=== PATIENT | male | born 1955 | race Caucasian/White ===

== ENCOUNTER 2017-04-03 13:49 | Observation (INO) | payer MEDICAID ==
[2017-04-03] MEDS ORDERED: ONDANSETRON ODT 4 MG TAB.RAPDIS ONE (14:16)
[2017-04-03 14:19] LABS: BLOOD UREA NITROGEN 16 mg/dL (9-20); CALCIUM 9.9 mg/dL (8.4-10.2); CHLORIDE 104 mmol/L (98-107); EST GLOMERULAR FILTRATION RATE > 60 mL/min; GLUCOSE 137 mg/dL (70-100); POTASSIUM 3.4 mmol/L (3.5-5.1); SODIUM 140 mmol/L (137-145)
[2017-04-03 14:28] LABS: BASOPHILS 0.4 % (0.0-2.0); EOSINOPHILS 2.7 % (0.0-6.0); EOSINOPHILS# 0.2 X 10^3uL (0.0-0.4); HEMATOCRIT 50.9 % (42.0-54.0); HEMOGLOBIN 17.8 g/dL (14.0-18.0); LYMPHOCYTES 26.3 % (20.0-40.0); LYMPHOCYTES# 2.1 X 10^3uL (0.8-3.8); MEAN CORPUS. HGB CONCENTRATION 34.9 g/dL (32.0-36.0); MEAN CORPUSCULAR HEMOGLOBIN 31.4 pg (29.0-35.0); MONOCYTES 6.5 % (2.0-10.0); MONOCYTES# 0.5 X 10^3uL (0.2-1.0); NEUTROPHILS 64.1 % (54.0-75.0); NEUTROPHILS# 5.1 X 10^3uL (2.6-6.7); PLATELET COUNT 317 X 10^3uL (130-440); RED BLOOD COUNT 5.65 X 10^6uL (4.20-6.10); RED CELL DISTRIBUTION WIDTH 12.4 % (11.5-14.5); WHITE BLOOD COUNT 7.9 X 10^3uL (3.9-10.7)
--- NOTE | 2017-04-03 14:34 | RADIOLOGY REPORT ---
HISTORY: COMPARISON: None. FINDINGS: 1 view of the chest obtained. Heart size and mediastinal contours are normal for the technique. The l ungs are clear but are mildly hypoinflated. IMPRESSION: Negative portable chest. Final Electronic Signature: This report was electronically signed by Pieter Howard MD on 04/03/2017 2: 32 PM. [email or web address] /
--- NOTE | 2017-04-03 14:39 | CT REPORT ---
HISTORY: Right-sided weakness. COMPARISON: None. TECHNIQUE: Dose reduction technique was utilized. Axial non-contrast images obtained from skull vertex through foramen magnum. Coronal reformats are obtained and reviewed. FINDINGS: BRAIN: No atrophy. No acute intracranial hemorrhage. No mass effect or hydrocephalus. No CT evidence of infarction. BONES AND EXTRACRANIAL SOFT TISSUES: The orbits are unremarkable. The paranasal sinuses and mastoid a ir cells are clear. The calvarium is intact. IMPRESSION: No acute findings. Final Electronic Signature: This report was electronically signed by Wilberto Arguello MD on 04/03/2017 2:37 PM. [email or web address] /
[2017-04-03] MEDS ORDERED: ONDANSETRON HCL 4 MG/2 ML VIAL ONE ×2 (14:56→15:23)
[2017-04-03 15:32] LABS: C-REACTIVE PROTEIN 10.3 mg/L (<10.0)
[2017-04-03 16:05] LABS: TROPONIN I < 0.012 ng/mL (0.00-0.034)
[2017-04-03] MEDS ORDERED: LORazepam 2 MG/ML INJ ONE (16:26)
[2017-04-03] MEDS ORDERED: POLYETHYLENE GLYCOL 3350 17 GM POWD.PACK PO PRN (16:47)
[2017-04-03] MEDS ORDERED: HOME MEDICATION LIST NEEDED 1 EA EACH MISC ONE (16:47)
[2017-04-03] MEDS ORDERED: ZOLPIDEM TARTRATE 5 MG TABLET PO PRN (16:47)
[2017-04-03] MEDS ORDERED: MAG-AL PLUS XS SUSP 30 ML UDC PO PRN (16:47)
[2017-04-03] MEDS ORDERED: NORMAL SALINE 1,000 ML IV SCH (17:00)
--- NOTE | 2017-04-03 17:54 | ER NURSING DOCUMENTATION ---
Nurse's Notes [facility] Name:Robert Fatima Age:62 yrs Sex:Male :1955 Arrival Date:04/03/2017 Time:13:49 BedTrauma-C Private MD: Diagnosis:Chest Pain;Dizziness - Vertigo Presentation: 04/03 13:54 Acuity: GILL 2 rh 14:02 Presenting complaint: EMS states: Pt woke up this am and was getting out of bed, pt rh became sweaty, dizzy and had chest tightness. Pt c/o weakness in the right arm and vision changes in the right eye. 14:11 Transition of care: Home. rh 14:11 Method Of Arrival: EMS: 410 rh Triage Assessment: 14:13 General: Appears in no apparent distress, Behavior is cooperative. Pain: Complains of rh pain in chest. EENT: Oral mucosa is dry. Neuro: Level of Consciousness is awake, alert, obeys commands, Oriented to person, place, time, event, Sharepoint Application Developer are weak on right Speech is normal, Facial symmetry appears normal, Pupils are PERRLA. Cardiovascular: Capillary refill < 3 seconds Reports Diaphoresis lightheadedness, Rhythm is sinus rhythm Chest pain quality is heaviness. Respiratory: Airway is patent Respiratory effort is even, unlabored, Denies shortness of breath. GI: Reports nausea. : No deficits noted. Derm: Skin is intact, is healthy with good turgor, Skin is pink, warm & dry. Musculoskeletal: Circulation, motion, and sensation intact Range of motion intact in all extremities. Historical: - Allergies: Codeine; TETRACYCLINES; - Home Meds: 1. NOVALOG INSLUN 2. Lisinopril Oral - PMHx: Diabetes - IDDM; Hypertension; HIGH CHOLESTEROL; - PSHx: Knee surgery; Cholecysectomy; - Tetanus: < 10 years. - Ebola Screening: : Patient negative for fever greater than or equal to 101.5 degrees Fahrenheit, and additional compatible Ebola Virus Disease symptoms. - Immunization history: Flu Vaccine < 1 year. - Social history: Smoking status: Patient states was never smoker of tobacco. Screenin:16 Infectious Disease Risk None. Abuse screen: Denies threats or abuse. Denies injuries rh from another. Nutritional screening: No deficits noted. Assessment: 14:16 See Triage Assessment done by same RN. Vital Signs: 13:55 BP 148 / 67; Pulse 71; Resp 20; Temp 98.8(TE); Pulse Ox 88% on R/A; Weight 124.74 kg; rh Height 5 ft. 7 in. (170.18 cm); Pain 0/10; 14:47 BP 151 / 69; Pulse 79; Resp 18; Pulse Ox 97% on 2 lpm NC; rh 15:30 BP 127 / 70; Pulse 73; Resp 14; Pulse Ox 98% on 2 lpm NC; Pain 0/10; rh 16:58 BP 130 / 66; Pulse 76; Resp 15; Pulse Ox 97% on 2 lpm NC; rh 17:30 BP 150 / 80; Pulse 79; Resp 16; Pulse Ox 98% on 2 lpm NC; rh 17:53 BP 145 / 83; Pulse 83; Resp 18; Pulse Ox 95% on 2 lpm NC; rh 13:55 Body Mass Index 43.07 (124.74 kg, 170.18 cm) rh ED Course: 13:51 Patient arrived in ED. ama 13:52 Amor Varghese MD is Attending Physician. be 13:53 EKG done. (by ED staff). Reviewed by Mary Nicholas. rh 13:54 Triage completed. rh 13:54 tub mender on. Pulse ox on. NIBP on. rh 13:55 Notified ED Physician of patient's arrival and chief complaint. Dr. Varghese. rh 14:00 Port Xray Completed. ms 14:00 Maintain field IV. Dressing intact. Good blood return noted. Site clean & dry. Gauge & rh site: 18 g in the R AC. Oxygen Oxygen administration via nasal cannula @ 2L/min. 14:01 Mary Nicholas is Primary Nurse. rh 14:16 Valuables Remains with patient Patient has correct armband on for positive rh identification. Placed in gown. Bed in low position. Call light in reach. Side rails up X 1. 15:43 EKG attached sc1 16:40 Kofi Palmer MD is Admitting Physician. be Administered Medications: 14:45 Drug: Aspirin 81 mg; Route: PO; rh 15:00 Follow up: Response: No adverse reaction rh 14:46 Drug: Zofran 8 mg; Route: IVP; Infused Over: 2 mins; Site: right hand; rh 17:04 Follow up: Response: Nausea is decreased rh 15:10 Drug: Nitroglycerin 0.4 mg; Route: Sublingual; sc1 17:54 Follow up: Response: No adverse reaction Outcome: 16:41 Decision to Admit by Provider. be 17:52 Admitted to Med/surg accompanied by nurse, via stretcher, with oxygen, with chart. 17:52 Condition: stable 17:52 Discharge Assessment: Patient awake, alert and oriented x 3. No cognitive and/or functional deficits noted. Patient verbalized understanding of disposition instructions. 17:52 Discharge instructions given to patient, Instructed on need to admit Demonstrated understanding of 17:53 Patient left the ED. Signatures: Ethel Pierre RN RN [facility] Gina Kumar RN RN Amor Varghese MD MD be Strickland, Mary ms Terriere, Zac Fontana, Mary Aparicio
--- NOTE | 2017-04-03 17:54 | ER PHYSICIAN DOCUMENTATION ---
Physician Documentation [facility] Name:Robert Fatima Age:62 yrs Sex:Male :1955 Arrival Date:04/03/2017 Time:13:49 BedTrauma-C Private MD: Amor Conde Disposition: 04/03 16:39 Critical Care: not applicable. be Disposition: 04/03/17 16:41 Admit ordered for Kofi Palmer. Preliminary diagnosis are Chest Pain, Dizziness - Vertigo. - Bed requested for Medical/Surgical. - Condition is Good. - Problem is new. - Symptoms are unchanged. 23 HR OBS Yes HPI: 14:46 This 62 yrs old Male presents to ER via EMS with complaints of Chest Pain. be 14:46 The patient or guardian reports chest pain that is located primarily in the anterior be chest wall. Onset: this morning, 4 hour(s) ago. The pain does not radiate. There has been no movement of pain. Associated signs and symptoms: Pertinent positives: dizziness, headache, nausea, vomiting, right sided weakness, Pertinent negatives: shortness of breath, syncope. Duration: The patient or guardian reports a single episode, that is now resolved. Historical: - Allergies: Codeine; TETRACYCLINES; - Home Meds: 1. NOVALOG INSLUN 2. Lisinopril Oral - PMHx: Diabetes - IDDM; Hypertension; HIGH CHOLESTEROL; - PSHx: Knee surgery; Cholecysectomy; - Tetanus: < 10 years. - Ebola Screening: : Patient negative for fever greater than or equal to 101.5 degrees Fahrenheit, and additional compatible Ebola Virus Disease symptoms. - Immunization history: Flu Vaccine < 1 year. - Social history: Smoking status: Patient states was never smoker of tobacco. ROS: 14:48 Cardiovascular: Positive for chest pain, Negative for edema, orthopnea, palpitations, be paroxysmal nocturnal dyspnea. 14:48 Neuro: Positive for dizziness, headache, numbness, weakness, right side, Negative for 14:48 Endocrine: Positive for DM, Accucheck 169 by EMS. 14:48 All other systems are negative. Exam: 14:50 Constitutional: This is a well developed, well nourished patient who is awake, alert, be and in no acute distress. Head/Face: Normocephalic, atraumatic. Eyes: Pupils equal round and reactive to light, extra-ocular motions intact. Lids and lashes normal. Conjunctiva and sclera are non-icteric and not injected. Cornea within normal limits. Periorbital areas with no swelling, redness, or edema. ENT: Nares patent. No nasal discharge, no septal abnormalities noted. Tympanic membranes are normal and external auditory canals are clear. Oropharynx with no redness, swelling, or masses, exudates, or evidence of obstruction, uvula midline. Mucous membranes moist. Neck: Trachea midline, no thyromegaly or masses palpated, and no cervical lymphadenopathy. Supple, full range of motion without nuchal rigidity, or vertebral point tenderness. No Meningismus. Chest/axilla: Normal chest wall appearance and motion. Nontender with no deformity. No lesions are appreciated. Abdomen/GI: Soft, non-tender, with normal bowel sounds. No distension or tympany. No guarding or rebound. No evidence of tenderness throughout. Skin: Warm, dry with normal turgor. Normal color with no rashes, no lesions, and no evidence of cellulitis. MS/ Extremity: Pulses equal, no cyanosis. Neurovascular intact. Full, normal range of motion. 14:50 Neuro: Awake and alert, GCS 15, oriented to person, place, time, and situation. be Cranial nerves II-XII grossly intact. Motor strength 5/5 in all extremities. Sensory grossly intact. Cerebellar exam normal. Normal gait. NIH 15. 14:50 Cardiovascular: Rate: normal, Rhythm: regular. 14:50 Respiratory: the patient does not display signs of respiratory distress. Vital Signs: 13:55 BP 148 / 67; Pulse 71; Resp 20; Temp 98.8(TE); Pulse Ox 88% on R/A; Weight 124.74 kg; rh Height 5 ft. 7 in. (170.18 cm); Pain 0/10; 14:47 BP 151 / 69; Pulse 79; Resp 18; Pulse Ox 97% on 2 lpm NC; rh 15:30 BP 127 / 70; Pulse 73; Resp 14; Pulse Ox 98% on 2 lpm NC; Pain 0/10; rh 16:58 BP 130 / 66; Pulse 76; Resp 15; Pulse Ox 97% on 2 lpm NC; rh 17:30 BP 150 / 80; Pulse 79; Resp 16; Pulse Ox 98% on 2 lpm NC; rh 17:53 BP 145 / 83; Pulse 83; Resp 18; Pulse Ox 95% on 2 lpm NC; rh 13:55 Body Mass Index 43.07 (124.74 kg, 170.18 cm) rh MDM: 13:52 Patient medically screened. be 14:43 Patient took aspirin in the Emergency Department. Patient did not receive fibrinolytic be due to Patient awoke with symptoms, last well time over 6 hours. ECG:. 15:43 EKG attached sc1 16:41 Data reviewed: lab test result(s), EKG, radiologic studies, CT scan, plain films, and be as a result, I will. Data interpreted: groundwater monitoring technician: rate is 72 beats/min, rhythm is normal sinus rhythm. 04/03 14:27 Order name: BASIC METABOLIC PANEL; Complete Time: 14:43 EDMS 04/03 14:29 Interpretation: hypokalemia. be 04/03 14:31 Order name: CBC AUTO DIF, MDIF/RMOR IF IND; Complete Time: 14:43 EDMS 04/03 14:42 Interpretation: Normal: normal. be 04/03 16:06 Order name: BNP,NT-PRO; Complete Time: 16:39 EDMS 04/03 16:35 Interpretation: Normal. be 04/03 16:06 Order name: C-REACTIVE PROTEIN; Complete Time: 16:39 EDMS 04/03 16:35 Interpretation: Normal. be 04/03 16:06 Order name: TROPONIN I; Complete Time: 16:39 EDMS 04/03 16:35 Interpretation: Normal. be 04/03 16:07 Order name: DDIMER; Complete Time: 16:39 EDMS 04/03 16:35 Interpretation: Normal. be 04/03 22:56 Order name: TROPONIN I EDMS 04/04 06:05 Order name: BASIC METABOLIC PANEL EDMS 04/04 06:07 Order name: CBC AUTO DIF, MDIF/RMOR IF IND EDMS 04/04 06:34 Order name: TROPONIN I EDMS 04/04 12:24 Order name: TROPONIN I EDMS 04/03 14:35 Order name: CHEST; SINGLE VIEW 67101; Complete Time: 14:43 EDMS 04/03 14:40 Order name: CAT SCAN; HEAD W/O CON [id number]; Complete Time: 14:43 EDMS 04/03 13:55 Order name: 12-lead EKG; Complete Time: 14:02 be 04/03 13:55 Order name: Continuous Cardiac Monitoring; Complete Time: 13:56 be 04/03 13:55 Order name: I & O; Complete Time: 14:02 be 04/03 13:55 Order name: Iv Saline Lock; Complete Time: 13:56 be 04/03 13:55 Order name: NIH Stroke Scale; Complete Time: 14:02 be 04/03 13:55 Order name: Pulse Ox Continuous; Complete Time: 13:56 be EC:43 Rate is 73 beats/min. Rhythm is regular, Normal Sinus Rhythm with No ectopy. QRS Wallace be is Normal. [place] interval is normal. QRS interval is normal. QT interval is normal. No Q waves. T waves are Normal. No ST changes noted. Clinical impression: Normal ECG. Reviewed by me. Dispensed Medications: 14:45 Drug: Aspirin 81 mg; Route: PO; 15:00 Follow up: Response: No adverse reaction 14:46 Drug: Zofran 8 mg; Route: IVP; Infused Over: 2 mins; Site: right hand; rh 17:04 Follow up: Response: Nausea is decreased rh 15:10 Drug: Nitroglycerin 0.4 mg; Route: Sublingual; [facility] 17:54 Follow up: Response: No adverse reaction rh Signatures: Ethel Pierre RN RN [facility] Amor Varghese MD MD Mary Nicholas
--- NOTE | 2017-04-03 19:01 | HISTORY AND PHYSICAL ---
PROVIDER: Date of Admission: 04/03/17 Admitting Provider: BONILLA MONTGOMERY Attending Provider: BONILLA MONTGOMERY Primary Care Provider: Dr. Mamie Emerson CHIEF COMPLAINT: Nausea/Vertigo/Change in Balance HISTORY OF PRESENT ILLNESS: 62 yo gentleman with HTN, Dyslipidemia, DM now on insulin alone, obesity and GERD who presented with paroxysmal episodes of flushing/nausea/balance changes and vertigo most recent episode when he awakened today at 1100. Denied diplopia initial but noted during exam of EOM. 3 similar episodes in last 3 months, present to ER today. In ER had CTH normal, attempt at MRI limited by Panic attack when head placed in "helmet". EKG NSR though IRBBB. Labs normal DDimer, Trop, elevated CRP at 10.1, BNP normal at 35 and normal CBC but glucose elevated and low potassium on CMP. Symptoms abated after about 1 hour which has been typical. Denies fever/cough/congestion/emesis/AP/Diarrhea. Does relate left shoulder/arm pain with episodes and numbness 305th digits. No diaphoresis. Symptoms similar to when he had Cholecystectomy but on left rather than right PAST MEDICAL HISTORY: DM previously on oral meds now Levimer and Novolog GERD HTN Dyslipidemia Obesity Nephrolithiasis PAST SURGICAL HISTORY: right knee arthoscopy carpal tunnel right cholecystectomy SOCIAL HISTORY: no alcohol, never smoker, and retired MEDICATIONS: Novolog ssi Levimer 48units bid (noon and mn) lisinopril 5mg at 1400 ASA 81mg Centrum daily fish Oil daily Vitamin C daily Vitamin D daily PPI ?prilosec 20mg daily magnesium daily ALLERGIES: codeine REVIEW OF SYSTEMS: GENERAL: SKIN: HEENT: NECK: RESPIRATORY: CARDIOVASCULAR: GASTROINTESTINAL: GENITOURINARY: MUSCULOSKELETAL: NEUROLOGICAL: PSYCHIATRIC: ENDOCRINE: HEMATOLOGY: per HPI VITAL SIGNS: 150/88 HR 88 RR 14 99.4 94% sats on 2lNC obese, pleasant, NAD No J/An/Cy/Cl/LN, Neck supple no masses nor bruits cranial nerves normal with exception left LR palsy with diplopia left gaze ( patient state chronic for some time but equivocates) RRR no murmur CTA but diminished at bases soft, protuberant, no masses, BS present and active No edema No pronator drift, power/tone symetric, dtr symetric, unable to stand secondary to vertigo thus not assess gait. PHYSICAL EXAMINATION: GENERAL: INTEGUMENTARY: HEAD AND NECK: EYE: ENMT: CHEST AND LUNG: CARDIOVASCULAR: ABDOMEN: GENITOURINARY: RECTAL: PERIPHERAL VASCULAR: NEUROLOGIC MUSCULOSKELETAL: NEUROPSYCHIATRIC: LYMPHATIC: LABORATORY: K 3.4 glucose 137 Hgb 17.8 wbc 7.9 normal differential Plts 317 BNP 35 CRP 10.3 Trop <0.012 DDimer 239 IMAGING: EKG NSR, IRBBB CTH normal no bleeding nor evidene ischemia, no atrophy noted. Assessment and Plan - Date of Encounter Date of Encounter: 04/03/17 (1) Chest pain Status: Acute Assessment and plan: IRAIDA risk elevated, seriel enzymes and stress echo in morning, start statin, increase ASA for tonight. Consider Lovenox. Cards c/s Current Visit: Yes (2) Vertigo Status: Acute Assessment and plan: tough as the diplopia may be chronic but may be just since the paroxysmal symptoms started. May represent CVA, normal CT but unable to obtain MRI with panic attack (would need conscious sedation and then MRI). Check echo and carotid doppler, may need to arrange MRI even as outpatient (states had open MRI in [place] around 2009 not sure location or physician and records not in [employer] or [facility]. Current Visit: Yes (3) Diplopia Status: Acute Current Visit: Yes (4) Hypertension Status: Acute Qualifiers: Hypertension type: essential hypertension Qualified Code(s): I10 - Essential (primary) hypertension Current Visit: Yes (5) Diabetes Status: Acute Qualifiers: Diabetes mellitus type: type 2 Diabetes mellitus complication status: with neurologic complications Current Visit: Yes (6) Dyslipidemia Status: Acute Current Visit: Yes - Time Spent With Patient Total time spent with greater than 50% in coordination of care (as documented) at patient's floor/unit and/or counseling patient: Greater than 35 minutes
[2017-04-03] MEDS ORDERED: ENALAPRILAT DIHYDRATE 1.25 MG/ML VIAL IV PRN (19:26)
[2017-04-03] MEDS ORDERED: DEXTROSE 50% WATER 25 GM/50 ML SYR IV PRN (19:26)
[2017-04-03] MEDS ORDERED: ENOXAPARIN SODIUM 100 MG/ML SYR SUBCUT ONE (19:28)
[2017-04-03] MEDS ORDERED: ATORVASTATIN CALCIUIM 40 MG TABLET PO SCH (21:00)
[2017-04-03] MEDS: INSULIN LISPRO 100 UNIT/ML ML SUBCUT SCH (21:27)
[2017-04-03] MEDS: LISINOPRIL 5 MG TABLET PO SCH (21:34)
[2017-04-04] MEDS ORDERED: INSULIN GLARGINE,HUM.REC.ANLOG 100 UNITS/ML ML SUBCUT SCH
[2017-04-04] MEDS: ACETAMINOPHEN 325 MG TABLET PO PRN ×2 (01:02→06:02)
[2017-04-04] MEDS: ONDANSETRON HCL 4 MG/2 ML VIAL IV PRN ×2 (05:37→13:25)
[2017-04-04 05:54] LABS: BASOPHIL# 0.1 X 10^3uL (0.0-0.1); EOSINOPHILS 1.4 % (0.0-6.0); EOSINOPHILS# 0.1 X 10^3uL (0.0-0.4); HEMATOCRIT 47.4 % (42.0-54.0); HEMOGLOBIN 16.6 g/dL (14.0-18.0); LYMPHOCYTES 29.4 % (20.0-40.0); LYMPHOCYTES# 2.9 X 10^3uL (0.8-3.8); MEAN CELL VOLUME 89.7 fL (80.0-100.0); MEAN CORPUS. HGB CONCENTRATION 35.1 g/dL (32.0-36.0); MEAN CORPUSCULAR HEMOGLOBIN 31.5 pg (29.0-35.0); MEAN PLATELET VOLUME 9.2 fL (7.4-10.4); MONOCYTES 4.2 % (2.0-10.0); MONOCYTES# 0.4 X 10^3uL (0.2-1.0); NEUTROPHILS# 6.5 X 10^3uL (2.6-6.7); PLATELET COUNT 287 X 10^3uL (130-440); RED BLOOD COUNT 5.29 X 10^6uL (4.20-6.10); RED CELL DISTRIBUTION WIDTH 12.6 % (11.5-14.5)
[2017-04-04 05:57] LABS: BLOOD UREA NITROGEN 15 mg/dL (9-20); CALCIUM 9.7 mg/dL (8.4-10.2); CHLORIDE 106 mmol/L (98-107); EST GLOMERULAR FILTRATION RATE > 60 mL/min; GLUCOSE 158 mg/dL (70-100); SODIUM 138 mmol/L (137-145)
[2017-04-04] MEDS: INSULIN LISPRO 100 UNIT/ML ML SUBCUT SCH (08:14)
--- NOTE | 2017-04-04 08:56 | PROGRESS NOTE: IM APSO ---
Assessment and Plan - Date of Encounter Date of Encounter: 04/04/17 (1) Vertigo Status: Acute Assessment and plan: Ongoing symptoms of dizziness and nausea with any position changes, especially with rotation of head to left or sitting upright. Patient has had negative CT head yesterday but unable to get additional imaging due to claustrophobia and inability to properly do conscious sedation with MRI. Did have carotid ultrasounds this am (1-15% stenosis both right and left). With ongoing symptoms and inability to properly work up, strongly consider transfer of patient. Current Visit: Yes (2) Nausea Status: Acute Assessment and plan: Related to acute issues with dizziness. improves with zofran but returns with any position change Current Visit: Yes (3) Diplopia Status: Acute Assessment and plan: difficult history but does seem to be new issue with diplopia in right eye when looking left. Patient has recently seen retinal specialist due to abnormalities noted by ophthalmology but symptoms are more persistent at this time. With inability to get additional imaging do feel needs more work up/ evaluation and may need transfer. Current Visit: Yes (4) Chest pain Status: Acute Assessment and plan: Now resolved has had negative troponin x3 and no significant abnormalities on EKG. Did have stress echo ordered for this morning but patient unable and refusing to lay on left side for imaging. Will need further cardiac testing as outpatient for further risk stratification Current Visit: Yes (5) Diabetes Status: Chronic Assessment and plan: Currently managed with insulin by endocrinology. Has made improvements in diabetes control since transition in care to specialist. Held Levemir due to NPO status. Current Visit: Yes (6) Dyslipidemia Status: Chronic Assessment and plan: Patient has declined statins in past but started during hospital stay with current symptoms. Current Visit: Yes (7) Hypertension Status: Chronic Assessment and plan: Meds held as blood pressures have been on the low side (normal for patient) Current Visit: Yes (8) Morbid obesity Status: Acute Assessment and plan: complicating work up as patient not only having anxiety with need for imaging but radiology techs also noted some respiratory distress during CT scan yesterday. Probable underlying DEVIN based on body habitus. Current Visit: Yes - Time Spent With Patient Total time spent with greater than 50% in coordination of care (as documented) at patient's floor/unit and/or counseling patient: Greater than 35 minutes IM: PN Subjective Interval history: Symptoms are slowly improving but still has nausea/headache- specifically with position changes. Difficult history patient/ are poor at specific timeframes. Yesterday symptoms were acute when he woke around 11am. Was very dizzy/headache/nauseated, but also had weakness on right side. states was walking into alex, afraid he was going to fall. She was considering calling 911 for this but then Robert started to complain about chest tightness and some shortness of breath so she did call 911. Symptoms did improve in emergency department but had 3 episodes of dizziness since admission. patient states has had vertigo in past with similar symptoms but never had the weakness. Today ongoing headache but when laying to right in bed no dizziness- if turns head to left does experience symptoms. Did have flare in symptoms around 5 am when was sitting up in bed due to foot pain/burning (chronic issue for patient) General: visual disturbance (has double vision when looks to left), no confusion , no fever, no chills HEENT: headache Cardiovascular: dizziness, no chest pain (resolved since admission), no chest pressure, no palpitations Respiratory: no cough, no SOB Gastrointestinal: nausea, vomiting (one time vomiting during CT scan) Genitourinary: no dysuria, no flank pain Musculoskeletal: weakness (had right sided weakness initially- now resolved) Integumentary: no rashes Neurological: headache, other (right hand tremor) IM: PN Objective Exam - I&O/Vital Signs I&O: Intake & Output 04/03/17 04/04/17 04/04/17 21:59 05:59 13:59 Intake Total 722 Balance 722 Weight 124.738 kg Intake: IV 322 Right Wrist 322 Oral 400 Other: Voiding Method Urinal # Voids 2 Vital Signs: Last Vital Signs Temp 36.4 C 04/04/17 06:51 Pulse 92 H 04/04/17 06:51 Resp 16 04/04/17 06:51 BP 110/47 04/04/17 06:51 Pulse Ox 97 04/04/17 06:51 Oxygen Flow Rate 2 Oxygen Delivery Method Room Air - Constitutional General appearance: Present: cooperative, morbidly obese. Absent: acute distress - Head Head exam: Present: atraumatic, normal inspection - Eye Eye exam: Present: conjunctival injection (mild bilateral) - ENT ENT exam: Present: mucous membranes moist, other (long celeste) - Neck Neck exam: Absent: tenderness - Respiratory Respiratory exam: Present: CTAB. Absent: accessory muscle use - Cardiovascular Cardiovascular exam: Present: RRR. Absent: systolic murmur - GI/Abdominal GI/Abdominal exam: Present: soft. Absent: tenderness - Extremities Exam Extremities exam: Absent: calf tenderness, edema, tenderness - Neurological Exam Neurological exam: Present: alert, CN II-XII intact (slight nystagmus with leftward gaze and patient did note double vision), oriented X3 - Psychiatric Psychiatric exam: Present: normal affect, normal mood - Skin Skin exam: Present: erythema (slight redness in right arm antecubital fossa- likely positional). Absent: rash - Allied Health Notes Allied health notes reviewed: nursing - Lab Labs: Laboratory Last Values WBC 10.0 X 10^3uL (3.9-10.7) 04/04/17 05:00 RBC 5.29 X 10^6uL (4.20-6.10) 04/04/17 05:00 Hgb 16.6 g/dL (14.0-18.0) 04/04/17 05:00 Hct 47.4 % (42.0-54.0) 04/04/17 05:00 MCV 89.7 fL (80.0-100.0) 04/04/17 05:00 MCH 31.5 pg (29.0-35.0) 04/04/17 05:00 MCHC 35.1 g/dL (32.0-36.0) 04/04/17 05:00 RDW 12.6 % (11.5-14.5) 04/04/17 05:00 Plt Count 287 X 10^3uL (130-440) 04/04/17 05:00 MPV 9.2 fL (7.4-10.4) 04/04/17 05:00 Neutrophils % 64.0 % (54.0-75.0) 04/04/17 05:00 Lymphocytes % 29.4 % (20.0-40.0) 04/04/17 05:00 Eosinophils % 1.4 % (0.0-6.0) 04/04/17 05:00 Basophils % 1.0 % (0.0-2.0) 04/04/17 05:00 Neutrophils # 6.5 X 10^3uL (2.6-6.7) 04/04/17 05:00 Lymphocytes # 2.9 X 10^3uL (0.8-3.8) 04/04/17 05:00 Monocytes 4.2 % (2.0-10.0) 04/04/17 05:00 Monocytes # 0.4 X 10^3uL (0.2-1.0) 04/04/17 05:00 Eosinophils # 0.1 X 10^3uL (0.0-0.4) 04/04/17 05:00 Basophils # 0.1 X 10^3uL (0.0-0.1) 04/04/17 05:00 D-Dimer 239 ng/mL 04/03/17 13:30 Sodium 138 mmol/L (137-145) 04/04/17 05:00 Potassium 3.4 mmol/L (3.5-5.1) L D 04/03/17 13:30 Chloride 106 mmol/L (98-107) 04/04/17 05:00 Carbon Dioxide 23 mmol/L (22-30) 04/04/17 05:00 BUN 15 mg/dL (9-20) 04/04/17 05:00 Creatinine 1.0 mg/dL (0.7-1.3) 04/04/17 05:00 GFR Calculation > 60 mL/min 04/04/17 05:00 Glucose 158 mg/dL (70-100) H 04/04/17 05:00 Calcium 9.7 mg/dL (8.4-10.2) 04/04/17 05:00 Troponin I < 0.012 ng/mL (0.00-0.034) 04/04/17 06:00 C-Reactive Protein 10.3 mg/L (<10.0) H 04/03/17 13:30 NT-Pro-B Natriuret Pep 35 pg/mL (<125) 04/03/17 13:30 Quality Questions - VTE Prophylaxis Assessment VTE Present on Admission?: No Patient at risk for venous thromboembolism?: No VTE Risk Level: Moderate Risk Pharmaceutical VTE prophylaxis contraindication reason: N/A- VTE prophylaxsis ordered Mechanical VTE prophylaxis contraindication reason: N/A- VTE prophylaxsis ordered (5) Diabetes Qualifiers: Diabetes mellitus type: type 2 Diabetes mellitus complication status: with neurologic complications 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
[2017-04-04 09:43] LABS: POTASSIUM 4.4 mmol/L (3.5-5.1)
[2017-04-04] MEDS: LISINOPRIL 5 MG TABLET PO SCH ×2 (09:45→09:47)
[2017-04-04 11:30] VITALS: BP 104/54; PULSE 64; RESP 24; TEMP 97.3; O2SAT 96
--- NOTE | 2017-04-04 12:14 | DC SUMMARY: IM Note ---
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 He was originally evaluated in emergency department yesterday and had negative CT head (unable to get MRI due to panic/anxiety), was admitted overnight for further observation and evaluation. After initial evaluation his chest pain had resolved and he also had improvement in right sided weakness, he continues to however have intermittent tremor of right hand (something patient and have noted for 4- 5 months however). Today he is very symptomatic with dizziness and nausea with any position change (turning head to left, laying to sitting/sitting to standing). We had carotid ultrasounds performed which were normal. Also attempted stress echocardiogram but with his symptoms he is not able to either walk on treadmill or lay on left side- he had negative troponins/no ongoing symptoms- will need further cardiac evaluation as outpatient however due to risk factors. I attempted to arrange conscious sedation for patient with MRI/MRA but unfortunately we do not have capabilities to get this study done at our facility - as patient does not tolerate just oral benzodiazepines for anxiety control ( "needs to be knocked out"). With his ongoing symptoms of unclear etiology- does have positional dizziness/nausea but diplopia, intermittent weakness, and tremor which do not all fit vertigo. I am concerned for missing TIA/CVA or other neurological cause of symptoms and thus feel better care for patient to transfer to facility than can appropriately complete the work up. Patient has been NPO since midnight for procedure today, his long acting insulin was held last night and continues with sliding scale at this time with most recent blood sugar of 160. pending ability to get MRI with sedation, will need to provide diet (although patient with minimal to no appetite currently). Discussed case with Dr. Paredes (hospitalist at [facility]) and he has graciously accepted patient for further rule out of CVA. - Time Spent with Patient Total time spent providing and/or coordinating discharge services: Time with patient DS: Greater than 30 minutes Discharge - Patient/Caregiver Discharge Instructions Diet: npo Print Language: TOGOLESE Disposition: [facility] Discharge Summary Data - Medication History Medication History: Home Medications Calcium Carbonate/Simethicone [Vonnie-Witherbee Heartburn+Gas] 1 tab.chew PO PRN PRN MDD 15 tabs per day 04/04/17 Cholecalciferol [Vitamin D*] 1,000 unit PO DAILY 04/04/17 Clotrimazole/Betamet Dip Cream [Lotrisone Cream*] 1 kayden TOPICAL BID 04/04/17 Fish Oil/Dha/Epa [Fish Oil 1,200 mg Fish Oil] 1,200 mg PO DAILY 04/04/17 Ibuprofen [Motrin*] 400 mg PO BEDTIME (DAILY) 04/04/17 Insulin Aspart [Novolog] 0 unit SUBCUT 3X DAILY WITH MEALS PRN 04/04/17 Insulin Detemir [Levemir Flextouch] 48 units SUBCUT BID@1200,0000 04/04/17 Lisinopril [Prinivil*] 5 mg PO DAILY 04/04/17 Magnesium Oxide 500 mg PO DAILY 04/04/17 Multivitamins,Therapeutic [Thera] 1 udtab PO DAILY 04/04/17 aspirin EC [Aspirin EC*] 81 mg PO DAILY 04/04/17 Inpatient Medications 04/03/17 19:26 Dextrose 50% Water [D50%] 50 gm IV PRN PRN Enalaprilat Dihydrate [Vasotec] 0.625 mg IV Q6H PRN 04/03/17 19:29 Lisinopril [Prinivil] 5 mg PO DAILY 04/03/17 21:00 Atorvastatin Calcium [Lipitor] 40 mg PO HS Insulin Lispro [HumaLOG] See Protocol SUBCUT ACHS metoprolol TARTRATE [Lopressor] 12.5 mg PO BID 04/04/17 00:00 Insulin Glargine,Hum.rec.anlog [Lantus] 48 units SUBCUT BID@0000,1200 04/04/17 05:29 Ondansetron HCl [Zofran] 4 mg IV Q6H PRN 04/04/17 09:00 aspirin EC [Ecotrin 81 mg] 81 mg PO DAILY Procedures and tests throughout hospitalization: Completed Lab Orders 04/03/17 22:00 TROPONIN I [CHEM] Routine 04/04/17 06:00 TROPONIN I [CHEM] Routine Pending Orders 04/03/17 19:22 Medications with water . NPO After midnight 0000 Echocardiogram w/ Stress Test [CARDIO] Routine 04/03/17 19:26 Finger Stick Blood Sugar ACHS FINGER STICK Hypoglycemia treatment... PER PROTOCOL Dextrose 50% Water [D50%] 50 gm IV PRN PRN Enalaprilat Dihydrate [Vasotec] 0.625 mg IV Q6H PRN 04/03/17 19:29 Lisinopril [Prinivil] 5 mg PO DAILY 04/03/17 21:00 Atorvastatin Calcium [Lipitor] 40 mg PO HS Insulin Lispro [HumaLOG] See Protocol SUBCUT ACHS metoprolol TARTRATE [Lopressor] 12.5 mg PO BID 04/04/17 00:00 Insulin Glargine,Hum.rec.anlog [Lantus] 48 units SUBCUT BID@0000,1200 04/04/17 05:29 Ondansetron HCl [Zofran] 4 mg IV Q6H PRN 04/04/17 08:23 Carotid Duplex, Bilateral [CARDIO] Routine 04/04/17 09:00 aspirin EC [Ecotrin 81 mg] 81 mg PO DAILY 04/04/17 09:53 BRAIN W/O CONTRAST [id number] [MRI] Routine MRA; BRAIN W/O [id number] [MRI] Routine 04/04/17 Breakfast Nothing By Mouth [DIET] Labs on day of discharge: Labs from last 24 hours 04/04/17 04/04/17 04/03/17 06:00 05:00 22:00 WBC 10.0 RBC 5.29 Hgb 16.6 Hct 47.4 MCV 89.7 MCH 31.5 MCHC 35.1 RDW 12.6 Plt Count 287 MPV 9.2 Neutrophils % 64.0 Lymphocytes % 29.4 Eosinophils % 1.4 Basophils % 1.0 Neutrophils # 6.5 Lymphocytes # 2.9 Monocytes 4.2 Monocytes # 0.4 Eosinophils # 0.1 Basophils # 0.1 Sodium 138 Potassium 4.4 D Chloride 106 Carbon Dioxide 23 BUN 15 Creatinine 1.0 GFR Calculation > 60 Glucose 158 H Calcium 9.7 Troponin I < 0.012 < 0.012 - Imaging and Cardiology Chest x-ray Additional comments: no acute abnormality CT scan - head Additional comments: normal Carotid ultrasound Additional comments: 1-15 % stenosis bilateral IM: Discharge Physical Exam - I&O/Vital Signs I&O: Intake & Output 04/03/17 04/04/17 04/04/17 21:59 05:59 13:59 Intake Total 722 400 Balance 722 400 Weight 124.738 kg Intake: IV 322 Right Wrist 322 Oral 400 400 Other: Urine Appearance Clear Voiding Method Urinal Urinal # Voids 2 Vital Signs: Last Vital Signs Temp 36.3 C L 04/04/17 11:00 Pulse 64 04/04/17 11:00 Resp 24 04/04/17 11:00 BP 104/54 04/04/17 11:00 Pulse Ox 96 04/04/17 11:00 Oxygen Flow Rate 2 Oxygen Delivery Method Room Air - Constitutional General appearance: Present: cooperative, morbidly obese. Absent: acute distress - Head Head exam: Present: atraumatic, normal inspection - Eye Eye exam: Present: conjunctival injection (mild bilateral) - ENT ENT exam: Present: mucous membranes moist, other (long celeste) - Neck Neck exam: Absent: tenderness - Respiratory Respiratory exam: Present: CTAB. Absent: accessory muscle use - Cardiovascular Cardiovascular exam: Present: RRR. Absent: systolic murmur - GI/Abdominal GI/Abdominal exam: Present: soft. Absent: tenderness - Extremities Exam Extremities exam: Absent: calf tenderness, edema, tenderness - Neurological Exam Neurological exam: Present: alert, CN II-XII intact (slight nystagmus with leftward gaze and patient did note double vision), oriented X3, other ( significant dizziness and nausea with position change (turn to left, lay to sit/ sit to stand)) - Psychiatric Psychiatric exam: Present: normal affect, normal mood - Skin Skin exam: Present: erythema (slight redness in right arm antecubital fossa- likely positional). Absent: rash - Allied Health Notes Allied health notes reviewed: nursing
[2017-04-05] MEDS ORDERED: LISINOPRIL 5 MG TABLET PO SCH (09:00)
== END 2017-04-04 12:32 | disposition short-term general hospital (02) ==
LOC: ER 13:49 → IN 17:50
PROVIDERS: ADMIT Hospitalist; ATTEND Hospitalist
DX: R42 Dizziness and giddiness (principal); R07.89 Other chest pain; H53.2 Diplopia; I10 Essential (primary) hypertension; E11.9 Type 2 diabetes mellitus without complications; E78.5 Hyperlipidemia, unspecified; E66.01 Morbid (severe) obesity due to excess calories; Z79.899 Other long term (current) drug therapy
CPT/HCPCS: 70450; 70551; 71010; 80048; 83880; 84484; 85025; 85379; 86140; 93005; 93041; 93351; 93880; 96361; 96372; 96374; 96376; 99285; A0425; A0427; A0429; G0378; J1815; J2060; J2405; J7030